=== PATIENT | female | born 1985 | race Caucasian/White ===

== ENCOUNTER 2017-08-03 18:53 | Emergency (ER) | payer MEDICAID ==
[~2017-08-03] VITALS: Ht 170.2 cm; Wt 95.2 kg
[2017-08-03] MEDS ORDERED: bacitracin 15gm ointment TP ONE (20:15)
[2017-08-03 20:34] VITALS: BP 120/87
== END 2017-08-03 20:37 | disposition home or self-care (01) ==
LOC: ER 18:54
DX: S60.352A Superficial foreign body of left thumb, initial encounter (principal); X58.XXXA Exposure to other specified factors, initial encounter; Y93.89 Activity, other specified; Y99.8 Other external cause status; Y92.89 Other specified places as the place of occurrence of the external cause
CPT/HCPCS: 99284